=== PATIENT | female | born 1940 | race Caucasian/White ===

== ENCOUNTER 2018-02-13 05:34 | Inpatient (IN) ==
[2018-02-13] MEDS ORDERED: Sodium Chlor 0.9% Inj 40 ML, Bupivacaine Liposo PF 1.3% Inj 20 ML P-ARTICULR ONE ×2 (06:17)
[2018-02-13] MEDS ORDERED: fentaNYL Citrate Inj 100 MCG/2 ML Ampul ONE (06:20)
[2018-02-13] MEDS ORDERED: Famotidine PF Inj 20 MG/2 ML Vial ONE (06:20)
[2018-02-13] MEDS ORDERED: fentaNYL Citrate Inj 250 MCG/5 ML Ampul ONE (06:20)
[2018-02-13] MEDS ORDERED: Dexamethasone Inj 20 MG/5 ML Vial ONE (06:29)
[2018-02-13] MEDS ORDERED: Chlorhexidine Gluconate 2% 1 Pack (2 Cloths) TOPICAL ONE (06:30)
[2018-02-13] MEDS ORDERED: Metoprolol Tartrate 25 MG Tablet PO ONE (06:30)
[2018-02-13] MEDS ORDERED: Chlorhexidine 4% Topical 120 APPLIC/120 ML Bottle TOPICAL SCH (06:30)
[2018-02-13] MEDS ORDERED: Sodium Chlor 0.9% Inj 500 ML IV.CONT ONE (06:30)
[2018-02-13 06:39] LABS: INR 1.1 Ratio; Prothrombin Time 10.7 sec (9.8-11.6)
--- NOTE | 2018-02-13 06:56 | P.DCO ---
- Physical Therapy Physical Therapy: Gait training, Transfer training, bed to chair Hip: Total hip Right Lower Extremity Weight Bearing: Weight bearing as tolerated Right Lower Extremity Range of Motion: Active ROM - Nursing Dressing changes: Do not change dressing Additional instructions: First dressing change in the office - Certification Need for Home Health services: I have seen patient Dolores Covarrubias on 02/13/18. My clinical findings support the need for the requested home health care services because: Need for Home Health Services: Limited ability to care for self, High risk of falls Homebound Certification: I certify that my clinical findings support that this patient is homebound because: Homebound Certification: Post-op weakness, Unsteady gait/balance
[2018-02-13] MEDS ORDERED: Vancomycin Inj 1,000 MG in Sodium Chlor 0.9% Inj 250 ML IV.SIG SCH (07:00)
[2018-02-13] MEDS ORDERED: ceFAZolin 2 GM Premix Inj 2 GM/50 ML PIGGYBACK IV.SIG SCH (07:00)
[2018-02-13] MEDS ORDERED: TRANEXAMIC ACID IV.SIG SCH ×2 (07:00→10:00)
[2018-02-13] MEDS ORDERED: SODIUM CHLOR 0.9% IV.SIG SCH ×2 (07:00→10:00)
[2018-02-13] MEDS ORDERED: Loratadine 10 MG Tablet PO PRN (08:38)
[2018-02-13] MEDS ORDERED: Post-op Orders (for Pharmacy) OTHER STA (08:41)
[2018-02-13] MEDS ORDERED: Morphine Inj 4 MG/ML Vial IV.PUSH PRN (08:41)
[2018-02-13] MEDS ORDERED: Bisacodyl 10 MG Supp RECTAL PRN (08:41)
[2018-02-13] MEDS ORDERED: Aluminum/Magnesium/Simethacone Susp 30 ML UDC PO PRN (08:41)
[2018-02-13] MEDS ORDERED: Zolpidem Tartrate 5 MG Tablet PO PRN (08:41)
--- NOTE | 2018-02-13 08:44 | P.OP ---
- Preoperative Diagnosis (1) Osteoarthritis of right hip - Postoperative Diagnosis (1) Osteoarthritis of right hip Date of procedure: 02/13/18 Procedure: Right total hip arthroplasty Anesthesia: GETA Surgeon: Adán Hughes MD Grader Green Meat: SHARAN Pedro The surgical procedure was assisted by my Advanced Registered Nurse Practitioner. My SURVEY TECHNOLOGIST presence was necessary throughout this case for the manipulation and positioning of the surgical extremity. My SURVEY TECHNOLOGIST was assisting me throughout the duration of this procedure. The skill set of an Advance Registered Nurse Practitioner was medically necessary to complete this procedure. During the surgical case, the certified surgical assistant was working at the back table and the Advance Registered Nurse Practitioner was directly assisting me. Operation and Findings: IMPLANT DESCRIPTION ([place]): 1. [place] Gription Cup, acetabular size 52. 2. [place] AltrX polyethylene, neutral. 4. [place] femoral stem size 12, no collar, standard offset. 5. Femoral head/neck metal, 36, +5. ESTIMATED BLOOD LOSS: 150 cc. JUSTIFICATION FOR PROCEDURE: The patient has end-stage osteoarthritis to the hip. There is an attached conservative measures pathway form in the chart that describes the nonoperative measures that were undertaken prior to consideration of surgical management. The patient understood the risks and benefits of surgical management. See my office notes for further details. PROCEDURE: The patient was brought back to the operative theatre. Adequate anesthesia was obtained. The patient received intravenous vancomycin and Ancef. The patient was carefully placed on the operative table. The lower extremity was prepped and draped in the usual sterile fashion. Fluoroscopic images were obtained. We made a standard anterior incision over the hip. We dissected through the TFL fascia, exposing the anterior capsule. Arthrotomy was performed in a T-shaped fashion. The capsule was tagged with a #2 FiberWire. End-stage arthritis was identified. Osteotomy was performed through the femoral neck exposing the acetabulum. Remnants of the labrum were resected and osteophytes were removed. We sequentially reamed the acetabulum. We trialed the hip and placed the final cup into position. This was done under fluoroscopic guidance to obtain the appropriate inclination and anteversion. A manhole cover was placed into the acetabular component. We then placed the final polyethylene into position and confirmed that it was well seated. Capsular attachments on the calcar and the inner aspect of the greater trochanter were resected. On the proximal aspect of the femur we used a rongeur , box osteotome, canal finder, sequential broaches and lateralizing rasp. We calcar planed the proximal femur. Then thoroughly irrigated the wound. We trialed the hip with the appropriate size stem. We placed the final stem in to position and trialed again. The hip was stable while it was externally rotated 70 degrees when the leg was lowered to the floor. The final head was applied, and final fluoroscopic images were obtained. The wound was thoroughly irrigated again. Interarticular injection of liposomal bupivacaine was given. The capsule was closed with #2 FiberWire and #1 Vicryl. The deep fascia was closed with a #2 Stratafix, followed by 2-0 Vicryl in the skin and Dermabond dressing. Postop plan is to weight-bear as tolerated. DVT prophylaxis will be performed with SCDs, FER ellington, early mobilization, and restarting outpatient Coumadin dosage tonight. The patient will also have a 3-day bridge of Lovenox..
[2018-02-13] MEDS ORDERED: *Ondansetron Inj 4 MG/2 ML Vial PERIprocedural Use ONLY ONE (09:16)
[2018-02-13] MEDS: Sod Chloride 0.9% Inj 1,000 ML IV.CONT SCH ×2 (09:31→20:40)
--- NOTE | 2018-02-13 10:02 | XR ---
EXAM DATE: 02/13/2018 9:58 AM EST AGE/SEX: 77 years / Female INDICATIONS: Post op right hip surgery CLINICAL DATA: This is the patient's sequela encounter. Patient reports that signs and symptoms have been present for 1 day and indicates a pain score of 5/10. MEDICAL/SURGICAL HISTORY: None. None. COMPARISON: [facility] INJECTION - HIP, RIGHT, 03/29/2016. . FINDINGS: Bony structures are intact and in normal alignment. Joints are intact without dislocation or signifi cant arthropathy. Osseous density is normal. Soft tissues are unremarkable. No radiopaque foreign bodies seen. CONCLUSION: The patient is status post a total hip arthroplasty. Prosthesis is well-seated. Alignment is anatomic . A fracture is not appreciated. CONCLUSION: Anatomic alignment. Augusto Radford MD FACR Electronically signed by: Augusto Radford MD Board Certified Radiologist 02/13/2018 10:00 AM EST
[2018-02-13] MEDS: Multivitamin/Minerals Therapeutic Tablet PO SCH ×2 (11:06→20:40)
[2018-02-13] MEDS: Senna/Docusate Sodium 8.6/50 MG Tablet PO SCH ×2 (11:06→20:40)
[2018-02-13 11:32] VITALS: RESP 18
[2018-02-13] MEDS ORDERED: Benzocaine/Menthol 15 MG/3.6 MG SF Lozenge BUCCAL PRN ×2 (12:06→15:18)
[2018-02-13] MEDS: ceFAZolin 1 GM Premix Inj 1 GM/50 ML PIGGYBACK IV.SIG SCH ×2 (13:54→18:12)
--- NOTE | 2018-02-13 15:01 | XR ---
EXAM DATE: 02/13/2018 2:55 PM EST AGE/SEX: 77 years / Female INDICATIONS: Total right hip replacement. CLINICAL DATA: This is the patient's initial encounter. Patient reports that signs and symptoms have been present for 1 day and indicates a pain score of Nonresponsive. MEDICAL/SURGICAL HISTORY: Non-responsive. Non-responsive. COMPARISON: No prior exams available for comparison. FINDINGS: Right total hip arthroplasty has been performed. The prosthesis appears to be in good position. CONCLUSION: Status post right total hip arthroplasty with prosthesis in good position. Electronically signed by: Antonino Orozco MD Board Certified Radiologist 02/13/2018 3:00 PM EST
[2018-02-13] MEDS: Acetaminophen 325 MG Tablet PO PRN (17:21)
[2018-02-13] MEDS: Flecainide 100 MG Tablet PO SCH (17:22)
[2018-02-13] MEDS: Polyvinyl Alcohol/Povidone PF Opth Drops 0.4 ML Dropperette EACH EYE SCH ×3 (17:22→21:24)
[2018-02-13] MEDS: Timolol 0.25% Drops 5 ML Bottle EACH EYE SCH (17:22)
[2018-02-13] MEDS: ALPRAZolam 0.25 MG Tablet PO SCH (20:40)
[2018-02-14] MEDS: ceFAZolin 1 GM Premix Inj 1 GM/50 ML PIGGYBACK IV.SIG SCH (00:13)
[2018-02-14] MEDS: Polyvinyl Alcohol/Povidone PF Opth Drops 0.4 ML Dropperette EACH EYE SCH ×3 (03:54→09:15)
[2018-02-14] MEDS: Flecainide 100 MG Tablet PO SCH (03:54)
[2018-02-14 05:11] LABS: Hematocrit 28.8 % (35.0-46.0); Hemoglobin 10.2 gm/dL (11.6-15.3)
[2018-02-14 05:26] LABS: INR 1.1 Ratio; Prothrombin Time 10.8 sec (9.8-11.6)
[2018-02-14] MEDS ORDERED: Levothyroxine 112 MCG Tablet PO SCH (06:00)
[2018-02-14] MEDS: Acetaminophen 325 MG Tablet PO PRN (06:10)
--- NOTE | 2018-02-14 07:34 | P.PNOP ---
Subjective Interval history: The patient is resting comfortably in bed in no acute distress. The patient reports no pain to the right hip. The patient is requesting to go home today with home health. Physical Exam Vital signs: Vital Signs 02/13/18 09:04 02/13/18 09:10 02/13/18 09:15 Temperature 97.6 F Pulse Rate 90 71 Respiratory Rate 16 17 Blood Pressure 155/80 H 136/70 Pulse Oximetry 98 94 L 93 L 02/13/18 09:30 02/13/18 09:45 02/13/18 10:00 Temperature 97.7 F Pulse Rate 71 63 62 Respiratory Rate 17 17 17 Blood Pressure 136/70 140/67 154/71 H Pulse Oximetry 93 L 93 L 99 02/13/18 10:01 02/13/18 11:31 02/13/18 16:59 Temperature 97.2 F L 97.0 F L Pulse Rate 63 65 Respiratory Rate 18 18 Blood Pressure 142/67 H 130/60 Pulse Oximetry 98 96 97 02/13/18 19:34 02/13/18 20:39 02/13/18 23:33 Temperature 97.9 F 97.6 F Pulse Rate 82 71 Respiratory Rate 18 18 Blood Pressure 119/57 L 109/57 L Pulse Oximetry 98 98 95 02/14/18 03:48 Temperature 98.6 F Pulse Rate 80 Respiratory Rate 18 Blood Pressure 103/46 L Pulse Oximetry 96 Intake & Output 02/13/18 02/14/18 02/14/18 18:59 06:59 18:59 Intake Total 3229.38 / 3229.38 2460 / 2460 Output Total 150 / 150 Balance 3079.38 / 3079.38 2460 / 2460 Weight 92.5 kg 92.5 kg Intake: IV 1569.38 / 1569.38 2100 / 2100 LR 1000 mL Inj 1,000 ML @ 30 1000 / 1000 mls/hr IV.CONT .Q24H ONE Rx#: [id number] NS Inj 1,000 ML @ 80 mls/hr IV. 1999 / 1999 CONT .[id number] [facility] Rx#:[id number] Cyklokapron Inj 969 MG In NS 219.38 / 219.38 Inj 100 ML @ 200 mls/hr IV.SIG ONCE [facility] Rx#:[id number] Vancomycin Inj 1,000 MG In NS 250 / 250 Inj 250 ML @ 250 mls/hr IV.SIG WANT AD SUPERVISOR [facility] Rx#:[id number] Ancef 1 GM Premix Inj 1 gm In 50 / 50 100 / 100 50 ml @ 100 mls/hr IV.SIG Q6H [facility] Rx#:[id number] Ancef 2 GM Premix Inj 2 gm In 50 / 50 50 ml @ 100 mls/hr IV.SIG WANT AD SUPERVISOR [facility] Rx#:[id number] Oral 960 / 960 360 / 360 Anesthesia Amount 700 / 700 Output: Estimated Blood Loss 150 / 150 Other: # Voids 3 3 Date of Last Bowel Movement 02/12/18 02/12/18 # Bowel Movements 0 Narrative: The patient's dressing is clean, dry, and intact. EHL/TA/G are intact. 2+ pedal pulse. The patient's calf is soft and nontender. Sensation is intact to light touch distally. Results - Labs CBC & Chem 7: 02/14/18 04:25 Laboratory Results - last 24 hr 02/14/18 02/14/18 04:25 04:25 Hgb 10.2 L Hct 28.8 L PT 10.8 INR 1.1 - Imaging Impressions Hip X-Ray 02/13/18 00:00 CONCLUSION: Status post right total hip arthroplasty with prosthesis in good position. Hip X-Ray 02/13/18 08:41 CONCLUSION: The patient is status post a total hip arthroplasty. Prosthesis is well-seated. Alignment is anatomic. A fracture is not appreciated. CONCLUSION: Anatomic alignment. Augusto Radford MD FACR - Procedures Right total hip arthroplasty Assessment and Plan - Problem List (1) Status post total hip replacement, right Code(s): Z96.641 - Presence of right artificial hip joint Status: Acute (2) Osteoarthritis of right hip Code(s): M16.11 - Unilateral primary osteoarthritis, right hip Status: Acute - Assessment and Plan POD #1: [Right] total hip arthroplasty 1. Weightbearing as tolerated on [right] lower extremity. 2. The patient will resume her Coumadin dosing and will have a Lovenox bridge for 3 days until therapeutic for DVT prophylaxis. The patient will monitor her INR lab work post discharge. Today's INR is 1.1. 3. Ice as needed for swelling. 4. Stable per ortho for discharge to home health today following her class. 5. The patient will follow up with Dr. Hughes and/or SHARAN Matthews as previously scheduled.
[2018-02-14] MEDS ORDERED: Dexamethasone Inj 20 MG/5 ML Vial IV.PUSH ONE (08:00)
[2018-02-14] MEDS ORDERED: Enoxaparin Inj 40 MG/0.4 ML Syringe SQ SCH (08:00)
[2018-02-14] MEDS: ALPRAZolam 0.25 MG Tablet PO SCH (09:03)
[2018-02-14] MEDS: Multivitamin/Minerals Therapeutic Tablet PO SCH (09:03)
[2018-02-14] MEDS: Senna/Docusate Sodium 8.6/50 MG Tablet PO SCH (09:03)
[2018-02-14] MEDS: Timolol 0.25% Drops 5 ML Bottle EACH EYE SCH (09:09)
[2018-02-14 13:49] VITALS: BP 131/82; PULSE 75; TEMP 98.2; O2SAT 96
--- NOTE | 2018-02-15 13:47 | P.DS ---
Date of admission: 02/13/18 05:34 Primary care physician: Jodie Balderas MD Attending physician on discharge: Adán Hughes Anticipated date of discharge: 02/14/18 Brief History from admission: The patient was admitted to the hospital for severe osteoarthritis of the right hip to have a right total hip arthroplasty. DS: Diagnosis - Discharge Diagnosis (1) Status post total hip replacement, right Status: Acute (2) Osteoarthritis of right hip Status: Acute DS: Summary Hospital Course: The patient was admitted to the hospital for severe osteoarthritis of the [right ] hip to have a [right] total hip arthroplasty. The patient's surgery went well with no complication. The patient is on a [regular] diet. The patient's DVT prophylaxis includes use of aspirin 81 mg twice daily. The patient is weightbearing as tolerated. The patient was discharged [home with home health] and will follow up in the office with Dr. Hughes and/or SHARAN Matthews as previously scheduled. - Time Spent with Patient Total time spent providing and/or coordinating discharge services: Greater than 30 minutes - Quality: VTE Deep Vein Thrombosis/Pulmonary Embolism Present on Admission: No Exam Vital signs: Intake & Output 02/14/18 02/15/18 02/15/18 18:59 06:59 18:59 Other: Date of Last Bowel Movement 02/12/18 Narrative: The patient's dressing is clean, dry, and intact. EHL/TA/G are intact. 2+ pedal pulse. The patient's calf is soft and nontender. Sensation is intact to light touch distally. Results Procedures completed during hospitalization: Right total hip arthroplasty - Impressions ITS Impressions Hip X-Ray 02/13/18 08:41 CONCLUSION: The patient is status post a total hip arthroplasty. Prosthesis is well-seated. Alignment is anatomic. A fracture is not appreciated. CONCLUSION: Anatomic alignment. Augusto Radford MD FACR Discharge Plan - Discharge Disposition Patient Disposition: W/Home Health Service - Discharge Condition Condition: Stable - Discharge Order Discharge Orders: Discharge Order (Routine); Ordered 02/13/18 Ordered By: Johan Sheridan - Discharge Details Anticipated Discharge Date: 02/14/18 - Physicians Team Primary Care Provider: Jodie Balderas Attending Provider: Adán Hughes Other Providers: Nurse Oncall,Agency - Rxs /Orders / Referrals /Forms Prescriptions: Continue alprazolam [Xanax] 0.25 mg Tablet 0.25 mg PO BID ascorbate calcium-bioflavonoid [Matilde-C with Bioflavonoids] 500-200 mg Tablet 1 tab PO BID calcium carbonate [Tums] 200 mg calcium (500 mg) Tablet,Chewable 200 mg PO BID cholecalciferol (vitamin D3) [Vitamin D3] 1,000 unit Capsule 1,000 unit PO DAILY chromium picolinate 200 mcg Capsule 200 mcg PO DAILY coconut oil 1,000 mg Capsule 1 cap PO DAILY fexofenadine [Sis Allergy] 180 mg Tablet 180 mg PO DAILY PRN (Reason: Allergic Symptoms) flaxseed oil 1,000 mg Capsule 1,000 mg PO TID flecainide 100 mg Tablet 100 mg PO Q12H folic acid 1 mg Tablet 1 mg PO DAILY Lactobacillus acidophilus [Acidophilus] Capsule 460 mg PO DAILY levothyroxine [Synthroid] 112 mcg Tablet 112 mcg PO DAILY magnesium oxide 400 mg (241.3 mg magnesium) Tablet 400 mg PO DAILY meclizine 25 mg Tablet 25 mg PO TID PRN (Reason: Dizziness) multivitamin [Daily Multiple] Tablet 1 tab PO DAILY pantoprazole [Protonix] 40 mg Tablet,Delayed Release (Dr/Ec) 40 mg PO DAILY PRN (Reason: Indigestion) polyvinyl alcohol-povidon(PF) [Refresh Classic (PF)] 1.4-0.6 % Dropperette 1 drp OPHTHALMIC (EYE) Q4-6H timolol [Betimol] 0.25 % Drops 1 drop EACH EYE DAILY vitamin B complex Tablet 1 tab PO DAILY warfarin [Coumadin] 7.5 mg Tablet 7.5 mg PO 3XW warfarin [Coumadin] 5 mg Tablet 5 mg PO QTUTHSASU zinc 50 mg Tablet 22 mg PO DAILY Discontinued celecoxib [Celebrex] 200 mg Capsule 200 mg PO DAILY PRN (Reason: Pain) glucosamine [id number]-kcrknanid 500-166.6-400 mg Tablet 4 tab PO DAILY awqxs-[id number]-gjq-epa-fish oil [[place]-3 Fish Oil] 300-1,000 mg Capsule 1 cap PO DAILY Ambulatory Orders / Order Sets / DME: Adjustable Commode 3-in-1 (1 each) (Routine) Location: Determined by Patient Ordered By: Johan Barr With Front Wheels (1 each) (Routine) Location: Determined by Patient Ordered By: Johan Sheridan Referrals: Adán Hughes MD [Physician] - See Instructions (f/u in the office as previously scheduled with Dr. Hughes or Josué Sheridan, LEANN ) Jodie Balderas MD [Primary Care Provider] - See Instructions - Discharge Instructions Patient Printed Instructions: Warfarin (By mouth), How to Use an Incentive Spirometer (DC), Fall Prevention for Older Adults (DC), Precautions after Total Joint Replacement Surgery (DC), Total Hip Replacement (DC) Additional Instructions: Follow up with Dr Hughes as instructed, notify him if your pain is not being contrioled by your current pain medication. Do Not Change hip dressing, it will be changed in the office at your first appointment. You may shower, no Baths. Keep your dressing clean and dry. Follow all your hip precautions Continue using your incentive spirometer every hour, this will continue to help improve your lung function. Good luck in your recovery, Ity has been a pleasure taking care of you. Kayla Eaton & Happy New Year. - Post Discharge Care Plan Care Plan Goals: Discharge Care Plan Goals for Total Hip Replacement You had a hip replacement surgery. This means your natural hip was replaced with an artificial joint (prosthesis). You may be recovering at home or in a rehabilitation facility. Either way, you must take care of your new hip. Here are some goals to help you heal well. Directions to Meet your Goals: 1. Activity & Exercises: * Take pain medicine as directed by your doctor. * Dont drive until your doctor says its OK. And never drive while taking opioid pain medicine. * Wear the support stockings you were given in the hospital as directed by your surgeon. * Dont sit for more than 30 to 45 minutes at one time. * Dont lean forward while sitting. * Dont cross your legs. * Keep your feet flat on the floor. Dont turn your foot or leg inward. This stresses your hip joint. * Use an elevated toilet seat for 6 weeks after surgery. * Nap if you are tired, but dont stay in bed all day. * Sit on a firm cushion when you ride in a car and avoid sitting too low. Try not to bend your hip too much when getting in and out of the car. 2. Prevent Falls/Injury: * Follow your doctors orders regarding how much weight to put on the affected leg. * Dont bend at the hip when you bend over. Don't bend at the waist to put on socks and shoes. And avoid picking up items from the floor. * Use a cane, crutches, a walker, or handrails until your balance, flexibility, and strength improve. And remember to ask for help from others when you need it. * Free up your hands so that you can use them to keep balance. Use a sue pack , apron, or pockets to carry things. * Arrange your household to keep the items you need handy. Keep everything else out of the way. * Remove items that may cause you to fall, such as throw rugs and electrical cords. * Use nonslip bath mats, grab bars, an elevated toilet seat, and a shower chair in your bathroom * Sit on a shower stool or chair when you shower to keep from falling. 3. Precautions: * Prevent infection. Any infection will need to be treated immediately. Call your doctor right away if you think you might have an infection. * Tell your dentist that you have an artificial joint and take antibiotics as prescribed before any dental work. * Tell all your healthcare providers about your artificial joint before any medical procedure. * Maintain a healthy weight. Get help to lose any extra pounds. Added body weight puts stress on the joints. 4. Incision Care: * Prevent infection by washing your hands often. If an infection occurs, it will need to be treated right away. * Call your doctor right away if you think you may have an infection. Symptoms include a fever or an incision that leaks white, green, or yellow fluid. * Don't soak your incision in water until your doctor says its OK. This means no hot tubs, bathtubs, or swimming pools. * Follow your doctor's instructions for changing the dressing. * Dont rub the incision, or apply creams or lotions to it. * If you notice any redness or drainage around the bandage site, contact your surgeon's office immediately. 5. Follow-Up: Do Not miss your follow-up appointment. Keep up with all your appointments and yearly check ups When to call your doctor: Call your doctor right away if you have: Hip pain gets worse Pain or swelling in your calf or leg not related to your incision Tenderness or redness in your calf Fever of 100.4F (38C) or higher, or as directed by your healthcare provider Shaking chills Swelling or redness at the incision site gets worse Fluid draining from the incision Call 911: Call 911 right away if you have: Chest pain Shortness of breath Any pain or tenderness in your calf
== END 2018-02-14 15:34 | disposition home health service (06) ==
LOC: HSDI 05:34 → N06 10:32
PROVIDERS: ADMIT Orthopaedic Surgery; ATTEND Orthopaedic Surgery